=== PATIENT | female | born 1950 | race Caucasian/White ===

== ENCOUNTER 2021-07-28 09:25 | Inpatient (IN) | payer MEDICAID ==
[~2021-07-28] VITALS: Ht 154.9 cm; Wt 99.0 kg
[~2021-07-28 09:25] MED LIST: AMBIEN10 M1 PO; AMOXICILLIN500 MG PO; ANAPROX DS550 MG PO; ASPIRIN325 MG; BUSPAR15 MG PO; CELEXA20 MG PO; CENTRUM SINGLE400 IU PO; CIPRO500 MG PO; CLARITIN REDITA10 MG; COLACE-T100 MG; DICLOFENAC50 MG PO; EFFER-K10 MEQ PO; EVISTA60 MG PO; FEROSUL325 MG PO; GABAPENTIN300 MG PO; HYZAAR 12.5 MG-1 TAB PO; KEFLEX500 MG PO; LAMICTAL25 MG PO; LANTUS100 U/ML SC; LASIX40 MG PO; METFORMIN1000 MG PO; MULTIPLE VITAMI1 CAP; ONGLYZA5 MG PO; OYSTER CALCIUM1 TA3 PO; PERIDEX 480 ML480 ML PO; PHENYTEK200 MG PO; PHENYTEK300 MG PO; PRILOSEC20 MG PO; SINGULAIR10 MG PO; TOPAMAX100 MG PO; TOPAMAX50 MG PO; TRAMADOL HCL50 MG PO; TRANSDERM-NITR0.2 MG; VALIUM5 MG; VESICARE5 MG PO; VICODIN 500 MG-1 TAB PO; VITAMIN D50000 I2 PO; Vicodin 5/500 505 MG PO; ZEBETA10 MG PO; ZOCOR20 MG PO
[2021-07-28 09:32] VITALS: BP 132/78
[2021-07-28 10:15] LABS: MEAN CELL VOLUME 87.6 fl (81.0-99.0); MEAN CORPUSCULAR HGB 27.7 pg (27.0-31.0); MEAN CORPUSCULAR HGB CONC 31.6 g/dl (33.0-37.0); PLATELET COUNT AUTOMATED 305 10*3/uL (130-400); RED BLOOD COUNT 4.91 10*6/uL (4.10-5.10); RED CELL DISTRI WIDTH 13.3 % (0-14.5); WHITE BLOOD COUNT 12.5 10*3/uL (4.8-10.8)
[2021-07-28 10:26] LABS: ALBUMIN 2.1 gm/dl (3.1-4.5); CREATININE 1.48 mg/dL (0.55-1.02); TOTAL PROTEIN 6.9 gm/dL (6.4-8.2)
[2021-07-28 10:42] LABS: TROPONIN I 1.14 ng/ml (<0.045)
[2021-07-28 10:48] LABS: BILIRUBIN Negative (Negative); BLOOD 2+ (Negative); CLARITY Clear (Clear); COLOR Yellow (Yellow); GLUCOSE 1+ (Negative); KETONE Trace (Negative); LEUKO ESTERASE Negative (Negative); NITRITE Negative (Negative); PH 5.5 (4.5-8.0)
[2021-07-28 10:49] LABS: TOTAL CELLS COUNTED 100 #CELLS
[2021-07-28 10:50] LABS: OVALOCYTES FEW; PLATELET SUFFICIENCY NORMAL (NORMAL)
[2021-07-28 10:59] LABS: RBC 0-2 rbc/hpf (0-2); WBC 0-2 wbc/hpf (0-5)
[2021-07-28] MEDS ORDERED: ASPIRIN ADULT L81 M1 PO (11:51)
[2021-07-28] MEDS ORDERED: LIPITOR80 MG PO (11:52)
[2021-07-28] MEDS ORDERED: CYMBALTA30 MG PO (11:52)
[2021-07-28] MEDS ORDERED: CYMBALTA60 MG PO (11:52)
[2021-07-28] MEDS ORDERED: DILANTIN100 MG PO (11:54)
[2021-07-28] MEDS ORDERED: LASIX20 MG PO (11:55)
[2021-07-28] MEDS ORDERED: IRON325 M3 PO (11:56)
[2021-07-28] MEDS ORDERED: NEURONTIN100 MG PO ×2 (11:56)
[2021-07-28] MEDS ORDERED: LANTUS SOL100 UNIT/1 SC ×2 (11:57→11:58)
[2021-07-28] MEDS ORDERED: KEPPRA1000 MG PO (11:57)
[2021-07-28] MEDS ORDERED: Zaroxolyn,Diul2.5 MG PO (11:59)
[2021-07-28] MEDS ORDERED: HYDROCODONE-AC1 EAC1 PO ×2 (12:00→12:01)
[2021-07-28] MEDS ORDERED: NOVOLOG100 UNIT/1 SC (12:01)
[2021-07-28] MEDS ORDERED: TRAD5TAB1 PO ×2 (12:02→12:03)
[2021-07-28] MEDS ORDERED: POTASSIUM CHLO20 ME3 PO (12:02)
[2021-07-28] MEDS ORDERED: VASCEPA1 G1 PO (12:03)
[2021-07-28] MEDS ORDERED: NYAMYC15 GM (12:05)
[2021-07-28 12:34] VITALS: BP 119/67
[2021-07-28 14:30] VITALS: BP 115/63
[2021-07-28 17:20] VITALS: BP 128/76
[2021-07-28 20:00] VITALS: BP 104/68
[2021-07-29] VITALS: BP 123/66
[2021-07-29 06:52] LABS: BASO % 0.3 % (0.0-1.0); HEMATOCRIT 41.3 % (37.0-47.0); LYMPH # 1.3 10*3/uL (1.3-4.4); LYMPH % 11.8 % (27.0-41.0); MEAN CELL VOLUME 88.8 fl (81.0-99.0); MEAN CORPUSCULAR HGB 27.5 pg (27.0-31.0); MEAN PLATELET VOLUME 11.1 fl (9.6-12.3); MONO # 0.4 10*3/uL (0.1-1.0); MONO % 3.9 % (3.0-9.0); NEUT % 81.3 % (47.0-73.0); PLATELET COUNT AUTOMATED 329 10*3/uL (130-400); RED BLOOD COUNT 4.65 10*6/uL (4.10-5.10); RED CELL DISTRI WIDTH 13.6 % (0-14.5); WHITE BLOOD COUNT 11.1 10*3/uL (4.8-10.8)
[2021-07-29 07:09] LABS: ALBUMIN 1.9 gm/dl (3.1-4.5); CREATININE 1.6 mg/dL (0.55-1.02); POTASSIUM 4.3 mmol/L (3.5-5.1); TOTAL PROTEIN 6.6 gm/dL (6.4-8.2)
[2021-07-29 07:15] LABS: THYROID STIM HORMONE (HS) 0.111 uIU/ml (0.358-4.75)
[2021-07-29 08:00] VITALS: BP 138/84
[2021-07-29 12:00] VITALS: BP 145/42
[2021-07-29 15:02] VITALS: BP 117/79; BP 118/79
[2021-07-29 15:42] VITALS: BP 147/89
[2021-07-29 20:00] VITALS: BP 115/63
[2021-07-29 22:29] LABS: ABG BASE EXCESS -1.9 mmol/L (-2.0-2.0); ARTERIAL BLOOD GAS PH 7.365 (7.35-7.45); ARTERIAL BLOOD GAS PO2 91.8 (80-90)
[2021-07-30] VITALS: BP 135/72
[2021-07-30 07:32] LABS: HEMATOCRIT 38.8 % (37.0-47.0); MEAN CORPUSCULAR HGB 27.6 pg (27.0-31.0); MEAN CORPUSCULAR HGB CONC 30.7 g/dl (33.0-37.0); MEAN PLATELET VOLUME 11.4 fl (9.6-12.3); PLATELET COUNT AUTOMATED 310 10*3/uL (130-400); RED BLOOD COUNT 4.31 10*6/uL (4.10-5.10); RED CELL DISTRI WIDTH 13.6 % (0-14.5); WHITE BLOOD COUNT 8.2 10*3/uL (4.8-10.8)
[2021-07-30 07:47] LABS: ALBUMIN 1.7 gm/dl (3.1-4.5); CREATININE 1.71 mg/dL (0.55-1.02); POTASSIUM 3.9 mmol/L (3.5-5.1); TOTAL PROTEIN 6.1 gm/dL (6.4-8.2)
[2021-07-30 07:59] LABS: PHENYTOIN (DILANTIN) 9.6 ug/ml (10-20)
[2021-07-30 08:00] VITALS: BP 110/64; BP 128/76
[2021-07-30 08:06] LABS: TOTAL CELLS COUNTED 100 #CELLS
[2021-07-30 08:07] LABS: BURR CELLS FEW; PLATELET SUFFICIENCY NORMAL (NORMAL); POLYCHROMASIA SLIGHT
[2021-07-30 12:00] VITALS: BP 132/74
[2021-07-30 20:00] VITALS: BP 90/69
[2021-08-01 13:07] LABS: FREE PHENYTOIN (DILANTIN) 1.9 ug/mL (1.0-2.0)
== END 2021-07-31 01:58 | disposition home or self-care (01) | DRG 720 ==
LOC: ED 09:25 → EDHOLD 10:54 → 4E 10:54 → EDHOLD 10:55 → 4E 16:48
PROVIDERS: Family Medicine; Internal Medicine; Student in an Organized Health Care Education/Training Program; ADMIT Internal Medicine; ATTEND Internal Medicine
PROC: XW033E5 Introduction of Remdesivir Anti-infective into Peripheral Vein, Percutaneous Approach, New Technology Group 5 (ICD-10-PCS; 2021-07-28)
PROC: 5A0935A Assistance with Respiratory Ventilation, Less than 24 Consecutive Hours, High Flow/Velocity Cannula (ICD-10-PCS; principal; 2021-07-30)
PROC: 5A09357 Assistance with Respiratory Ventilation, Less than 24 Consecutive Hours, Continuous Positive Airway Pressure (ICD-10-PCS; 2021-07-30)
DX: A41.9 Sepsis, unspecified organism (principal); U07.1 COVID-19; J12.82 Pneumonia due to coronavirus disease 2019; I21.4 Non-ST elevation (NSTEMI) myocardial infarction; J96.01 Acute respiratory failure with hypoxia; Z66 Do not resuscitate; Z51.5 Encounter for palliative care; E87.2 Acidosis; N17.0 Acute kidney failure with tubular necrosis; E43 Unspecified severe protein-calorie malnutrition; N32.81 Overactive bladder; E87.0 Hyperosmolality and hypernatremia; R65.20 Severe sepsis without septic shock; R74.01 Elevation of levels of liver transaminase levels; I48.91 Unspecified atrial fibrillation; E78.5 Hyperlipidemia, unspecified; N18.30 Chronic kidney disease, stage 3 unspecified; I12.9 Hypertensive chronic kidney disease with stage 1 through stage 4 chronic kidney disease, or unspecified chronic kidney disease; I25.10 Atherosclerotic heart disease of native coronary artery without angina pectoris; D64.9 Anemia, unspecified; G40.909 Epilepsy, unspecified, not intractable, without status epilepticus; R73.9 Hyperglycemia, unspecified; E87.8 Other disorders of electrolyte and fluid balance, not elsewhere classified; Z79.01 Long term (current) use of anticoagulants; Z88.6 Allergy status to analgesic agent; Z88.8 Allergy status to other drugs, medicaments and biological substances; Z79.899 Other long term (current) drug therapy; Z79.82 Long term (current) use of aspirin; Z79.1 Long term (current) use of non-steroidal anti-inflammatories (NSAID); Z95.5 Presence of coronary angioplasty implant and graft; Z68.41 Body mass index [BMI] 40.0-44.9, adult